=== PATIENT | female | born 1995 | race Caucasian/White ===

== ENCOUNTER 2019-06-10 13:08 | Emergency (ER) | payer OTHER ==
[2019-06-10 14:08] VITALS: BP 125/89; PULSE 98; TEMP 101.2; BMI 24.0
--- NOTE | 2019-06-10 14:09 | PDOC ---
Rapid Medical Evaluation Chief Complaint: Cold Symptoms Time Seen by Provider: 06/10/19 14:08 Medical Evaluation: Allergies Allergy/AdvReac Type Severity Reaction Status Date / Time No Known Drug Allergies Allergy Verified 06/10/19 14:09 Vital Signs Temp Pulse Resp BP Pulse Ox 101.2 F H 98 H 18 125/89 98 06/10/19 14:06 06/10/19 14:06 06/10/19 14:06 06/10/19 14:06 06/10/19 14:06 06/10/19 14:09 Pt c/o: fever, cough, myalgia Pt on brief exam: tachy, febrile Pt ordered for: influenza pt to proceed to the ED Discharge Disposition - Diagnosis Influenza - Discharge Dispostion Disposition: HOME Condition at time of disposition: Stable - Prescriptions Prescriptions: Ibuprofen 600 mg PO Q6H #30 tablet Ondansetron [Zofran Odt -] 4 mg SL TID #10 od.tablet - Referrals Referrals: Nito Mars MD [Staff Physician] - - Patient Instructions Printed Discharge Instructions: DI for Influenza -- Adult Additional Instructions: You have the flu. This is a virus that will get better on its own in approximately 7-10 days. You will most likely have a fever for 7-10 days because of the flu. This is to be expected. Drink plenty of fluids to prevent dehydration and get plenty of rest. Warm tea and cough drops may help your symptoms as well Take Motrin as directed for pain and fever. Take all other medications as prescribed. Follow up with your primary care doctor this week Return to the ED for difficulty breathing, shortness of breath, weakness, or if you have any other changes in your symptoms. - Post Discharge Activity Work/School Note: Back to Work
[2019-06-10] MEDS ORDERED: IBUPROFEN 400 MG TABLET (FP) PO ONE ×2 (14:10→15:51)
[2019-06-10] MEDS ORDERED: ACETAMINOPHEN 325 MG TABLET (FP) PO ONE (15:59)
[2019-06-10] MEDS ORDERED: ACETAMINOPHEN 500 MG TABLET (FP) ONE (16:01)
[2019-06-10] MEDS ORDERED: ONDANSETRON *ODT* 4 MG TABLET SL ONE (16:08)
--- NOTE | 2019-06-10 16:08 | PDOC ---
History of Present Illness - General Chief Complaint: Cold Symptoms Stated Complaint: COLD SYMPSTOM Time Seen by Provider: 06/10/19 14:08 History Source: Patient Exam Limitations: No Limitations Past History - Travel Traveled outside of the country in the last 30 days: No Close contact w/someone who was outside of country & ill: No - Past Medical History Allergies/Adverse Reactions: Allergies Allergy/AdvReac Type Severity Reaction Status Date / Time No Known Drug Allergies Allergy Verified 06/10/19 14:09 Home Medications: Ambulatory Orders Ondansetron [Zofran Odt -] 4 mg SL TID #10 od.tablet 06/10/19 Anemia: No Asthma: No Cancer: No Cardiac Disorders: No CVA: No COPD: No CHF: No Dementia: No Diabetes: No GI Disorders: No Disorders: No HTN: No Hypercholesterolemia: No Liver Disease: No Seizures: No Thyroid Disease: No - Reproductive History (#): 2 Para: 0 Spontaneous : 1 - Immunization History Immunization Up to Date: Yes - Psycho Social/Smoking Cessation Hx Smoking Status: No Smoking History: Never smoked Have you smoked in the past 12 months: Yes Number of Cigarettes Smoked Daily: 1 'Breaking Loose' booklet given: 10/25/15 Hx Alcohol Use: No Drug/Substance Use Hx: No Substance Use Type: None Review of Systems - Review of Systems Able to Perform ROS?: Yes Comments:: 06/10/19 16:07 CONSTITUTIONAL: Present: Fever, chills, body aches Absent: diaphoresis, generalized weakness, malaise, loss of appetite HEENT: Present: rhinorrhea, nasal congestion, throat pain. Absent: difficulty swallowing, mouth swelling, ear pain, eye pain, visual Changes CARDIOVASCULAR: Absent: chest pain, loss of consciousness, palpitations, irregular heart rate, peripheral edema RESPIRATORY: Present: Cough Absent: shortness of breath, dyspnea with exertion, orthopnea, wheezing, stridor, hemoptysis GASTROINTESTINAL: Absent: abdominal pain, abdominal distension, nausea, vomiting, diarrhea, constipation, melena, hematochezia SKIN: Absent: rash, itching, pallor NEUROLOGIC: Present: headache Absent: focal weakness or paresthesias, dizziness, unsteady gait, seizure, mental status changes, bladder or bowel incontinence Is the patient limited Yi proficient: No *Physical Exam - Vital Signs Last Vital Signs Temp Pulse Resp BP Pulse Ox 101.2 F H 98 H 18 125/89 98 06/10/19 14:06 06/10/19 14:06 06/10/19 14:06 06/10/19 14:06 06/10/19 14:06 - Physical Exam 06/10/19 16:08 GENERAL: Well developed, well nourished. Awake and alert. No acute distress. HEENT: Normocephalic, atraumatic. PERRLA, EOMI. No conjunctival pallor. Sclera are non- icteric. Moist mucous membranes. Oropharynx is clear. NECK: Supple. Full ROM. No JVD. Carotid pulses 2+ and symmetric, without bruits. No thyromegaly. No lymphadenopathy. CARDIOVASCULAR: Regular rate and rhythm. No murmurs, rubs, or gallops. Distal pulses are 2+ and symmetric. PULMONARY: No evidence of respiratory distress. Lungs clear to auscultation bilaterally. No wheezing, rales or rhonchi. ABDOMINAL: Soft. Non-tender. Non-distended. No rebound or guarding. No organomegaly. Normoactive bowel sounds. MUSCULOSKELETAL Normal range of motion at all joints. No bony deformities or tenderness. No CVA tenderness. EXTREMITIES: No cyanosis. No clubbing. No edema. No calf tenderness. SKIN: Warm and dry. Normal capillary refill. No rashes. No jaundice. NEUROLOGICAL: Alert, awake, appropriate. Cranial nerves 2-12 intact. No deficits to light touch and temperature in face, upper extremities and lower extremities. No motor deficits in the in face, upper extremities and lower extremities. Normoreflexic in the upper and lower extremities. Normal speech. Toes are down-going bilaterally. Gait is normal without ataxia. PSYCHIATRIC: Cooperative. Good eye contact. Appropriate mood and affect. ED Treatment Course - Medications Given in the ED: ED Medications Discontinued Medications Generic Name Dose Route Start Last Admin Trade Name Freq PRN Reason Stop Dose Admin Acetaminophen 1,000 mg 06/10/19 15:59 06/10/19 16:02 Tylenol - PO 06/10/19 16:00 1,000 mg ONCE ONE Administration Ibuprofen 400 mg 06/10/19 14:10 06/10/19 15:52 Motrin - PO 06/10/19 14:11 400 mg ONCE ONE Administration Medical Decision Making - Medical Decision Making 06/10/19 16:08 Patient is a 23-year-old female no past medical history who presents to the ER with 4 days of flulike symptoms. She is been taking multiple [id number] medications without relief of her symptoms. She also admits to associated nausea. Denies difficulty breathing, shortness of breath, vomiting and diarrhea. A/P: Influenza On exam lungs are clear to auscultation bilateral without wheezes rales or rhonchi. Throat and ears are unremarkable. Patient with cervical adenopathy. Patient test positive for flu B from [facility]. Patient outside the window for Tamiflu. Recommend supportive therapy and primary care follow-up Discharge home I discussed the physical exam findings, ancillary test results and final diagnoses with the patient. I answered all of the patient's questions. The patient was satisfied with the care received and felt comfortable with the discharge plan and treatment plan. The Patient agrees to follow up with the primary care physician/specialist within 24-72 hours. Return precautions were given. Discharge - Discharge Information Problems reviewed: Yes Clinical Impression/Diagnosis: Influenza Condition: Stable Disposition: HOME - Admission No - Follow up/Referral Referrals: Nito Mars MD [Staff Physician] - - Patient Discharge Instructions Patient Printed Discharge Instructions: DI for Influenza -- Adult Additional Instructions: You have the flu. This is a virus that will get better on its own in approximately 7-10 days. You will most likely have a fever for 7-10 days because of the flu. This is to be expected. Drink plenty of fluids to prevent dehydration and get plenty of rest. Warm tea and cough drops may help your symptoms as well Take Motrin as directed for pain and fever. Take all other medications as prescribed. Follow up with your primary care doctor this week Return to the ED for difficulty breathing, shortness of breath, weakness, or if you have any other changes in your symptoms. - Post Discharge Activity Work/Back to School Note: Back to Work
[2019-06-10] MEDS ORDERED: ONDANSETRON *ODT* 4 MG TABLET ONE (16:17)
== END 2019-06-10 16:35 | disposition home or self-care (01) ==
LOC: JERFT 13:08
DX: J10.1 Influenza due to other identified influenza virus with other respiratory manifestations (principal)
CPT/HCPCS: 87804; 99281-25; Q0162

== ENCOUNTER 2022-12-22 14:21 | Day surgery (SDC) | payer OTHER ==
[2022-12-22 14:27] VITALS: BMI 22.3
[2022-12-22] MEDS ORDERED: SODIUM CHLORIDE 0.9% 500 ML INFUS.BAG IV ONE (14:51)
[2022-12-22] MEDS ORDERED: ACETAMINOPHEN 1000 MG/100 ML BAG IVPB ONE (14:51)
[2022-12-22] MEDS ORDERED: ACETAMINOPHEN INJECTION 100 ML IVPB ONE (15:09)
[2022-12-22 16:40] LABS: BASO % 0.5 % (0-2.0); EOS % 1.5 % (0-4.5); HEMATOCRIT 40.3 % (32.4-45.2); HEMOGLOBIN 13.2 GM/dL (10.7-15.3); LYMPH % 19.9 % (8-40); MCH 29.6 pg (25.7-33.7); MCHC 32.8 g/dl (32.0-36.0); MEAN CELL VOLUME 90.3 fl (80-96); MEAN PLT VOLUME 9.2 fl (7.5-11.1); MONO % 5.5 % (3.8-10.2); NEUT % 72.6 % (42.8-82.8); PLATELET COUNT 377 10^3/uL (134-434); RBC 4.47 M/mm3 (3.60-5.2); RDW 13.9 % (11.6-15.6)
[2022-12-22 16:45] LABS: INR 1.07 (0.83-1.09); PROTHROMBIN TIME (PATIENT) 12.4 SEC (9.7-13.0)
[2022-12-22 16:48] LABS: ACTIVATED PTT 27.9 SECONDS (25.2-36.5)
[2022-12-22 17:13] LABS: POTASSIUM 3.8 mmol/L (3.5-5.1)
[2022-12-22 17:16] LABS: ALBUMIN 4.2 g/dl (3.4-5.0); BLOOD UREA NITROGEN 7.4 mg/dL (7-18); CALCIUM 9.3 mg/dL (8.5-10.1)
[2022-12-22 17:19] LABS: CREATININE 0.8 mg/dL (0.55-1.3)
[2022-12-22 17:21] LABS: BILIRUBIN,TOTAL 0.2 mg/dL (0.2-1); TOT PROT 8.3 g/dl (6.4-8.2)
[2022-12-22 19:27] LABS: EPI CELLS 17 /uL (0-25.1); HYALINE CASTS 0 /uL (0-3.1); URINE APPEARANCE CLEAR; URINE BACTERIA 499 /uL (0-1359); URINE BILIRUBIN NEGATIVE (NEGATIVE); URINE COLOR YELLOW; URINE GLUCOSE (UA) NEGATIVE (NEGATIVE); URINE KETONE NEGATIVE (NEGATIVE); URINE LEUK ESTERASE NEGATIVE (NEGATIVE); URINE NITRITE NEGATIVE (NEGATIVE); URINE PROTEIN NEGATIVE (NEGATIVE); URINE RBC 19 /uL (0-23.9); URINE UROBILINOGEN 0.2 mg/dL (0.2-1.0); URINE WBC 8 /uL (0-25.8)
[2022-12-22] MEDS ORDERED: morphine CARPU-JECT 4 MG/1 ML DISP.SYRIN IVPUSH ONE (21:40)
[2022-12-22] MEDS ORDERED: morphine SULFATE 4 MG/ML VIAL ONE ×2 (21:43→21:56)
[2022-12-22] MEDS ORDERED: ONDANSETRON 4 MG/2 ML VIAL ONE (21:43)
[2022-12-22 23:29] LABS: BASO % 0.5 % (0-2.0); EOS % 0.6 % (0-4.5); HEMATOCRIT 37.8 % (32.4-45.2); HEMOGLOBIN 12.2 GM/dL (10.7-15.3); LYMPH % 15.5 % (8-40); MCH 29.4 pg (25.7-33.7); MCHC 32.2 g/dl (32.0-36.0); MEAN CELL VOLUME 91.3 fl (80-96); MEAN PLT VOLUME 8.6 fl (7.5-11.1); MONO % 4.7 % (3.8-10.2); NEUT % 78.7 % (42.8-82.8); PLATELET COUNT 343 10^3/uL (134-434); RBC 4.14 M/mm3 (3.60-5.2); RDW 13.7 % (11.6-15.6); WHITE BLOOD COUNT 15.9 K/mm3 (4.0-10.0)
[2022-12-22] MEDS ORDERED: PROPOFOL 40 ML ONE (23:42)
[2022-12-22] MEDS ORDERED: MIDAZOLAM HCL 2 MG/2 ML SINGLE DOSE VIAL ONE (23:42)
[2022-12-23] MEDS ORDERED: METHYLERGONOVINE MALEATE 0.2 MG/1 ML AMP IM ONE (00:47)
[2022-12-23] MEDS ORDERED: ONDANSETRON 4 MG/2 ML VIAL IVPUSH PRN (01:00)
[2022-12-23] MEDS ORDERED: PROMETHAZINE HCL 25 MG/1 ML VIAL IVPB PRN (01:04)
[2022-12-23] MEDS ORDERED: ACETAMINOPHEN 1000 MG/100 ML BAG IVPB ONE (01:04)
[2022-12-23] MEDS ORDERED: IBUPROFEN 400 MG TABLET (FP) PO PRN (01:14)
[2022-12-23] MEDS ORDERED: LACTATED RINGERS SOLUTION 1,000 ML IV SCH ×3 (01:15→02:00)
[2022-12-23] MEDS: FENTANYL CITRATE/PF 50 MCG/ML VIAL IVPUSH PRN ×4 (01:21→02:00)
[2022-12-23 04:02] VITALS: RESP 20
[2022-12-23 12:33] VITALS: BP 131/79; PULSE 65; TEMP 98
== END 2022-12-23 12:20 | disposition home or self-care (01) ==
LOC: JER 14:21 → JASUSAT 22:41 → UNDOADMIN 22:41 → JERBED 22:41 → J8W 12-23 03:35 → JASUSAT 12-23 07:46 → J8W 12-23 07:59 → JASUSAT 12-23 12:20
PROVIDERS: ATTEND Obstetrics & Gynecology
PROC: 10D17ZZ Extraction of Products of Conception, Retained, Via Natural or Artificial Opening (ICD-10-PCS; principal; 2022-12-22 23:45)
DX: O03.4 Incomplete spontaneous abortion without complication (principal)
CPT/HCPCS: 36415; 76801-TC; 80053; 81003; 83690; 84702; 85025; 85610; 85730; 86922; 88305-TC; 94760; 99285-25

== ENCOUNTER 2023-04-17 10:40 | Emergency (ER) | payer OTHER ==
[2023-04-17 10:59] VITALS: BP 121/83; PULSE 120; RESP 18; TEMP 98.9; BMI 23.1
[2023-04-17] MEDS ORDERED: guaiFENesin/D-METHORPHAN HB 10 ML UNIT-DOSE CUPS PO ONE (11:59)
[2023-04-17] MEDS ORDERED: predniSONE 20 MG TABLET (UD) PO ONE (11:59)
[2023-04-17] MEDS ORDERED: guaiFENesin 200 MG/10 ML 10 ML UNIT-DOSE CUPS ONE (12:27)
[2023-04-17] MEDS ORDERED: predniSONE 20 MG TABLET (UD) ONE (12:27)
[2023-04-17 12:40] LABS: THROAT:GRP A STREP NOT DETECTED (NOTDETECTED)
== END 2023-04-17 13:06 | disposition home or self-care (01) ==
LOC: JERFT 10:40
DX: R05.9 Cough, unspecified (principal); R50.9 Fever, unspecified; M79.10 Myalgia, unspecified site; R53.83 Other fatigue; J02.9 Acute pharyngitis, unspecified; R09.81 Nasal congestion; J10.1 Influenza due to other identified influenza virus with other respiratory manifestations; Z20.822 Contact with and (suspected) exposure to COVID-19
CPT/HCPCS: 0241U-QW; 71046-TC-FY; 87651; 99284-25

== ENCOUNTER 2023-12-13 00:10 | Inpatient (IN) | payer OTHER ==
[2023-12-13] MEDS: ELECTROLYTE-148 SOLN 1,000 ML IV SCH (02:00)
[2023-12-13] MEDS: ACETAMINOPHEN 325 MG TABLET (FP) PO ONE (02:10)
[2023-12-13] MEDS: OXYTOCIN 30 UNITS in 0.9% NS 30 UNIT/500 ML INFUS.BAG IVPB SCH (02:15)
[2023-12-13 02:27] LABS: BASO % 0.2 % (0-2.0); EOS % 0.9 % (0-4.5); HEMATOCRIT 37.6 % (32.4-45.2); HEMOGLOBIN 12.9 GM/dL (10.7-15.3); LYMPH % 14.9 % (8-40); MCH 30.3 pg (25.7-33.7); MCHC 34.3 g/dl (32.0-36.0); MEAN CELL VOLUME 88.4 fl (80-96); MEAN PLT VOLUME 9.5 fl (7.5-11.1); MONO % 7.1 % (3.8-10.2); NEUT % 76.9 % (42.8-82.8); PLATELET COUNT 290 10^3/uL (134-434); RBC 4.26 M/mm3 (3.60-5.2); RDW 14.6 % (11.6-15.6); WHITE BLOOD COUNT 11.8 K/mm3 (4.0-10.0)
[2023-12-13 02:36] LABS: INR 0.97 (0.83-1.09); PROTHROMBIN TIME (PATIENT) 11.2 SEC (9.7-13.0)
[2023-12-13] MEDS: BUTORPHANOL TARTRATE 1 MG/ML VIAL IVPB ONE (02:38)
[2023-12-13] MEDS: PROMETHAZINE HCL 25 MG/1 ML VIAL IVPB ONE (02:38)
[2023-12-13 02:55] LABS: CALCIUM 9.4 mg/dL (8.5-10.1)
[2023-12-13 02:56] LABS: ALBUMIN 2.7 g/dl (3.4-5.0); BLOOD UREA NITROGEN 7.6 mg/dL (7-18)
[2023-12-13 02:59] LABS: CREATININE 0.8 mg/dL (0.55-1.3)
[2023-12-13 03:01] LABS: BILIRUBIN,TOTAL 0.2 mg/dL (0.2-1); TOT PROT 6.5 g/dl (6.4-8.2)
[2023-12-13 03:49] VITALS: BMI 28.5
[2023-12-13] MEDS: AMPICILLIN - 2 GM in SODIUM CHLORIDE 100 ML IVPB ONE (04:15)
[2023-12-13] MEDS ORDERED: SODIUM CHLORIDE 100 ML IVPB ONE (04:15)
[2023-12-13] MEDS ORDERED: AMPICILLIN SODIUM 2 GM VIAL ONE (04:15)
[2023-12-13] MEDS ORDERED: FENTANYL/BUPIVACAINE/NS/PF - PCEA - 50 ML DISP.SYRIN EP ONE ×2 (04:26→08:49)
[2023-12-13] MEDS ORDERED: NALOXONE HCL 0.4 MG/ML VIAL IVPUSH PRN (04:45)
[2023-12-13] MEDS ORDERED: BUPIVACAINE HCL/PF 0.25% (2.5MG/ML) 10 ML VIAL ONE (04:46)
[2023-12-13] MEDS: FENTANYL/BUPIVACAINE/NS/PF - PCEA - 50 ML DISP.SYRIN EP SCH (05:05)
[2023-12-13 05:11] LABS: METHADONE, UR NEGATIVE (NEGATIVE); OPIATES, URI NEGATIVE (NEGATIVE); PHENCYCLIDINE,URINE NEGATIVE (NEGATIVE); URINE BARBITURATES NEGATIVE (NEGATIVE); URINE BENZODIAZEPINES NEGATIVE (NEGATIVE)
[2023-12-13] MEDS ORDERED: MAGNESIUM 4GM/H20 - 4 GM/100 ML IVPB IVPB ONE (06:13)
[2023-12-13] MEDS: MAGNESIUM 4GM/H20 - 4 GM/100 ML IVPB IVPB ONE (06:23)
[2023-12-13 06:30] LABS: COCAINE, UR NEGATIVE (NEGATIVE); URINE AMPHETAMINES NEGATIVE (NEGATIVE)
[2023-12-13] MEDS ORDERED: MAGNESIUM SULFATE 20GM/500ML - 20 GM/500 ML INFUS.BAG ONE ×2 (06:59→21:55)
[2023-12-13] MEDS: MAGNESIUM SULFATE 20GM/500ML - 20 GM/500 ML INFUS.BAG IVPB SCH ×2 (07:00→16:00)
[2023-12-13] MEDS ORDERED: AMPICILLIN SODIUM 1 GM VIAL ONE ×2 (07:44→11:56)
[2023-12-13] MEDS: AMPICILLIN - 1 GM in SODIUM CHLORIDE 100 ML IVPB SCH (08:00)
[2023-12-13] MEDS ORDERED: LIDO 2%/EPI 1:200000 PRESRVFRE (20 ML SDVIAL) ONE (12:16)
[2023-12-13] MEDS ORDERED: OXYTOCIN 20 UNITS in 0.9% NS 20 UNIT/1,000 ML INFUS.BAG IV ONE (13:00)
[2023-12-13] MEDS: OXYTOCIN 20 UNITS in 0.9% NS 20 UNIT/1,000 ML INFUS.BAG IV SCH (14:06)
[2023-12-13] MEDS ORDERED: IBUPROFEN 600 MG TABLET (FP) PO PRN (15:32)
[2023-12-13] MEDS ORDERED: METHYLERGONOVINE MALEATE 0.2 MG/1 ML AMP IM PRN (15:32)
[2023-12-13] MEDS ORDERED: WITCH HAZEL 50% (TUCKS) 40 PAD/JAR PAD TP PRN (15:32)
[2023-12-13] MEDS ORDERED: BENZOCAINE 20% 57 GM BOTTLE TP PRN (15:32)
[2023-12-13] MEDS ORDERED: BISACODYL 10 MG SUPP.RECT RC PRN (15:32)
[2023-12-13] MEDS ORDERED: BENZOCAINE 28 GM HEMORRHOIDAL OINTMENT TP PRN (15:32)
[2023-12-13] MEDS ORDERED: LABETALOL HCL 200 MG TABLET (FP) ONE ×2 (16:00→20:19)
[2023-12-13] MEDS ORDERED: ACETAMINOPHEN 325 MG TABLET (FP) ONE ×2 (16:11→21:55)
[2023-12-13] MEDS: ACETAMINOPHEN 325 MG TABLET (FP) PO PRN (16:25)
[2023-12-13] MEDS: LABETALOL HCL 200 MG TABLET (FP) PO SCH (17:08)
[2023-12-13] MEDS ORDERED: oxyCODONE HCL 5 MG TABLET ONE (19:06)
[2023-12-13] MEDS: oxyCODONE HCL 5 MG TABLET PO PRN (19:09)
[2023-12-13 21:43] LABS: HIV INTERPRETATION NEGATIVE (NEGATIVE)
[2023-12-14] MEDS ORDERED: ACETAMINOPHEN 325 MG TABLET (FP) ONE (04:54)
[2023-12-14 06:52] LABS: BASO % 0.2 % (0-2.0); EOS % 0.7 % (0-4.5); HEMATOCRIT 36.4 % (32.4-45.2); LYMPH % 11.7 % (8-40); MCH 29.9 pg (25.7-33.7); MEAN CELL VOLUME 90.5 fl (80-96); MEAN PLT VOLUME 9.7 fl (7.5-11.1); MONO % 4.9 % (3.8-10.2); NEUT % 82.5 % (42.8-82.8); PLATELET COUNT 256 10^3/uL (134-434); RBC 4.03 M/mm3 (3.60-5.2); RDW 14.5 % (11.6-15.6); WHITE BLOOD COUNT 18.5 K/mm3 (4.0-10.0)
[2023-12-14] MEDS ORDERED: oxyCODONE HCL 5 MG TABLET ONE (06:58)
[2023-12-14 07:12] LABS: MAGNESIUM 5.6 mg/dL (1.8-2.4)
[2023-12-14] MEDS: IBUPROFEN 600 MG TABLET (FP) PO SCH (10:26)
[2023-12-14] MEDS: ACETAMINOPHEN 500 MG TABLET (FP) PO SCH (10:55)
[2023-12-14] MEDS ORDERED: SENNOSIDES/DOCUSATE COMBO (SENNA PLUS) TABLET (UD) PO PRN (22:00)
[2023-12-15 11:31] VITALS: BP 143/92; PULSE 82; RESP 16; TEMP 98.5
== END 2023-12-15 14:15 | disposition home or self-care (01) | DRG 560 ==
LOC: JDEL 00:10 → JLDR 01:20 → J3W 20:52 → JLDR 21:14 → J3W 12-14 09:25
PROVIDERS: ADMIT Specialist; ATTEND Specialist
PROC: 0HQ9XZZ Repair Perineum Skin, External Approach (ICD-10-PCS; principal; 2023-12-13)
PROC: 10E0XZZ Delivery of Products of Conception, External Approach (ICD-10-PCS; 2023-12-13)
DX: O66.0 Obstructed labor due to shoulder dystocia (principal); O14.94 Unspecified pre-eclampsia, complicating childbirth; O70.0 First degree perineal laceration during delivery; Z3A.39 39 weeks gestation of pregnancy; Z37.0 Single live birth
CPT/HCPCS: 36415; 59409; 80053; 80307; 83735; 85025; 85610; 85730; 86780; 86850; 86900; 86901; 87389

== ENCOUNTER 2024-01-29 18:02 | Inpatient (IN) | payer OTHER ==
[2024-01-29] MEDS ORDERED: ACETAMINOPHEN INJECTION 100 ML ONE (18:57)
[2024-01-29] MEDS ORDERED: ONDANSETRON 4 MG/2 ML VIAL ONE ×2 (18:57→20:35)
[2024-01-29] MEDS: SODIUM CHLORIDE 0.9% 500 ML INFUS.BAG IV ONE ×2 (19:18→21:15)
[2024-01-29] MEDS: ONDANSETRON 4 MG/2 ML VIAL IVPUSH ONE ×2 (19:19→20:40)
[2024-01-29] MEDS: ACETAMINOPHEN 1000 MG/100 ML BAG IVPB ONE (19:19)
[2024-01-29 19:55] LABS: BASO % 0.1 % (0-2.0); HEMATOCRIT 43.7 % (32.4-45.2); HEMOGLOBIN 14.2 GM/dL (10.7-15.3); LYMPH % 7.6 % (8-40); MCH 28.6 pg (25.7-33.7); MCHC 32.6 g/dl (32.0-36.0); MEAN CELL VOLUME 87.7 fl (80-96); MEAN PLT VOLUME 9.8 fl (7.5-11.1); MONO % 7.9 % (3.8-10.2); NEUT % 84.4 % (42.8-82.8); PLATELET COUNT 301 10^3/uL (134-434); RBC 4.98 M/mm3 (3.60-5.2); WHITE BLOOD COUNT 17.5 K/mm3 (4.0-10.0)
[2024-01-29] MEDS ORDERED: MORPHINE SULFATE 2 MG/ML SYRINGE ONE ×2 (20:27→22:19)
[2024-01-29 20:35] LABS: POTASSIUM 5.2 mmol/L (3.5-5.1)
[2024-01-29 20:38] LABS: CALCIUM 9.7 mg/dL (8.5-10.1)
[2024-01-29 20:39] LABS: ALBUMIN 3.5 g/dl (3.4-5.0)
[2024-01-29 20:42] LABS: CREATININE 1.3 mg/dL (0.55-1.3)
[2024-01-29 20:43] LABS: BILIRUBIN,TOTAL 0.9 mg/dL (0.2-1); TOT PROT 8.8 g/dl (6.4-8.2)
[2024-01-29] MEDS: morphine CARPU-JECT 2 MG/1 ML DISP.SYRIN IVPUSH ONE ×2 (20:53→22:31)
[2024-01-29] MEDS ORDERED: PIPERACILLIN/TAZOB 3.375 GM 3.375 GM/50 ML BAG IVPB ONE (21:07)
[2024-01-29 21:13] LABS: EPI CELLS >36 /uL (0-25.1); HYALINE CASTS 0 /uL (0-3.1); URINE APPEARANCE CLEAR; URINE BACTERIA 901 /uL (0-1359); URINE BILIRUBIN NEGATIVE (NEGATIVE); URINE COLOR YELLOW; URINE GLUCOSE (UA) NEGATIVE (NEGATIVE); URINE KETONE NEGATIVE (NEGATIVE); URINE LEUK ESTERASE 2+ (NEGATIVE); URINE NITRITE NEGATIVE (NEGATIVE); URINE PROTEIN 1+ (NEGATIVE); URINE RBC 17 /uL (0-23.9); URINE UROBILINOGEN 0.2 mg/dL (0.2-1.0); URINE WBC 56 /uL (0-25.8)
[2024-01-29] MEDS: PIPERACILLIN/TAZOB 3.375 GM 3.375 GM in DEXTROSE 5%-WATER - 50 ML IVPB ONE (21:15)
[2024-01-30] MEDS ORDERED: ACETAMINOPHEN INJECTION 100 ML ONE ×4 (01:44→23:52)
[2024-01-30] MEDS: ACETAMINOPHEN 1000 MG/100 ML BAG IVPB ONE ×2 (01:47→08:04)
[2024-01-30] MEDS ORDERED: CEFTRIAXONE 1 GM/50 ML BAG ONE (01:49)
[2024-01-30] MEDS: CEFTRIAXONE 1,000 MG in DEXTROSE 5%-WATER - 50 ML IVPB ONE (01:51)
[2024-01-30] MEDS: LACTATED RINGERS SOLUTION 1,000 ML/1,000 ML INFUS.BAG IV SCH ×2 (03:12→08:04)
[2024-01-30] MEDS: morphine SULFATE 4 MG/ML VIAL IVPUSH ONE (05:05)
[2024-01-30] MEDS ORDERED: ENOXAPARIN NA (PORCINE) 40 MG/0.4 ML DISP.SYRIN SQ ONE (10:14)
[2024-01-30] MEDS ORDERED: PIPERACILLIN/TAZOB 4.5 GM 4.5 GM/100 ML BAG IVPB ONE (10:14)
[2024-01-30] MEDS: PIPERACILLIN/TAZOB 4.5 GM 4.5 GM in DEXTROSE 5%-WATER 100 ML IVPB SCH ×2 (10:29→11:32)
[2024-01-30] MEDS: ENOXAPARIN NA (PORCINE) 40 MG/0.4 ML DISP.SYRIN SQ SCH (10:29)
[2024-01-30] MEDS: ACETAMINOPHEN 1000 MG/100 ML BAG IVPB PRN (16:23)
[2024-01-30] MEDS ORDERED: MEROPENEM 1 GM VIAL (RESTRICTED TO ID) IVPB ONE (17:24)
[2024-01-30] MEDS ORDERED: MEROPENEM 1 GM in DEXTROSE 5%-WATER 100 ML IVPB SCH (18:00)
[2024-01-30] MEDS ORDERED: PIPERACILLIN/TAZOB 4.5 GM 4.5 GM in DEXTROSE 5%-WATER 100 ML IVPB SCH (18:00)
[2024-01-30] MEDS: MEROPENEM 1 GM in DEXTROSE 5%-WATER 100 ML IVPB SCH (18:30)
[2024-01-30 19:54] VITALS: RESP 18
[2024-01-31] MEDS: ONDANSETRON 4 MG/2 ML VIAL IVPUSH ONE (01:55)
[2024-01-31] MEDS: ONDANSETRON *ODT* 4 MG TABLET SL PRN (02:10)
[2024-01-31 04:02] VITALS: BMI 25.3
[2024-01-31] MEDS: KETOROLAC TROMETHAMINE 15 MG/ML VIAL IM PRN (04:43)
[2024-01-31 10:26] LABS: HEMATOCRIT 33.5 % (32.4-45.2); HEMOGLOBIN 11.1 GM/dL (10.7-15.3); MCH 28.9 pg (25.7-33.7); MCHC 33.2 g/dl (32.0-36.0); MEAN CELL VOLUME 87.1 fl (80-96); MEAN PLT VOLUME 9.6 fl (7.5-11.1); PLATELET COUNT 282 10^3/uL (134-434); RBC 3.85 M/mm3 (3.60-5.2); RDW 13.7 % (11.6-15.6); WHITE BLOOD COUNT 11.4 K/mm3 (4.0-10.0)
[2024-01-31 12:10] LABS: POTASSIUM 3.9 mmol/L (3.5-5.1)
[2024-01-31 12:20] LABS: CREATININE 0.8 mg/dL (0.55-1.3); PHOSPHOROUS 3.4 mg/dL (2.5-4.9)
[2024-01-31 12:21] LABS: BILIRUBIN,TOTAL 0.4 mg/dL (0.2-1); BLOOD UREA NITROGEN 9.2 mg/dL (7-18); MAGNESIUM 2.1 mg/dL (1.8-2.4)
[2024-01-31 12:24] LABS: ALBUMIN 2.5 g/dl (3.4-5.0); TOT PROT 6.2 g/dl (6.4-8.2)
[2024-01-31 15:44] VITALS: BP 120/90; PULSE 72; TEMP 97.9
== END 2024-01-31 17:18 | disposition home or self-care (01) | DRG 561 ==
LOC: JER 18:02 → JERBED 22:46 → OBSVTOIN 01-30 08:48 → J6S 01-31 01:02
PROVIDERS: ADMIT Student in an Organized Health Care Education/Training Program; ATTEND Internal Medicine
PROC: 05HY33Z Insertion of Infusion Device into Upper Vein, Percutaneous Approach (ICD-10-PCS; principal; 2024-01-31)
DX: O86.21 Infection of kidney following delivery (principal); R74.01 Elevation of levels of liver transaminase levels; A41.9 Sepsis, unspecified organism; E86.0 Dehydration; E86.1 Hypovolemia; N12 Tubulo-interstitial nephritis, not specified as acute or chronic
CPT/HCPCS: 0241U-QW; 36415; 36569; 74177-TC; 80053; 81003; 83605; 83690; 83735; 84100; 84703; 85025; 85027; 87040; 87086; 93005; 93010; 99285-25; G0378; J0131; Q0162; Q9967

== ENCOUNTER 2024-02-01 12:05 | Day surgery (SDC) | payer OTHER ==
[2024-02-01] MEDS: ERTAPENEM SODIUM 1 GM in SODIUM CHLORIDE 50 ML IVPB ONE (12:30)
[2024-02-01 13:10] VITALS: BP 129/88; PULSE 80; RESP 19; TEMP 98.4
== END 2024-02-01 13:05 | disposition home or self-care (01) ==
LOC: FINFUSION 12:05 → FM/S 12:09 → FINFUSION 13:05
PROVIDERS: ATTEND Internal Medicine Infectious Disease
DX: N39.0 Urinary tract infection, site not specified (principal)
CPT/HCPCS: 96365

== ENCOUNTER 2024-02-02 12:25 | Day surgery (SDC) | payer OTHER ==
[2024-02-02] MEDS: ERTAPENEM SODIUM 1 GM in SODIUM CHLORIDE 50 ML IVPB SCH (13:06)
[2024-02-02 13:16] VITALS: TEMP 98.4
[2024-02-02 13:54] VITALS: BP 112/55; PULSE 85; RESP 18
== END 2024-02-02 13:50 | disposition home or self-care (01) ==
LOC: FINFUSION 12:25 → FM/S 12:30 → FINFUSION 13:50
PROVIDERS: ATTEND Internal Medicine Infectious Disease
DX: N39.0 Urinary tract infection, site not specified (principal)
CPT/HCPCS: 96365

== ENCOUNTER 2024-02-03 12:12 | Day surgery (SDC) | payer OTHER ==
[2024-02-03] MEDS: ERTAPENEM SODIUM 1 GM in SODIUM CHLORIDE 50 ML IVPB SCH (12:33)
[2024-02-03 13:22] VITALS: BP 132/96; PULSE 72; RESP 14; TEMP 98.8
== END 2024-02-03 13:25 | disposition home or self-care (01) ==
LOC: FINFUSION 12:12 → FM/S 12:13 → FINFUSION 13:25
PROVIDERS: ATTEND Internal Medicine Infectious Disease
DX: N39.0 Urinary tract infection, site not specified (principal)
CPT/HCPCS: 96365

== ENCOUNTER 2024-02-04 12:15 | Day surgery (SDC) | payer OTHER ==
[2024-02-04] MEDS: ERTAPENEM SODIUM 1 GM in SODIUM CHLORIDE 50 ML IVPB ONE (12:40)
[2024-02-04 13:17] VITALS: BP 129/92; PULSE 86; RESP 18; TEMP 98.6
== END 2024-02-04 13:13 | disposition home or self-care (01) ==
LOC: FINFUSION 12:15 → FM/S 12:18 → FINFUSION 13:13
PROVIDERS: ATTEND Internal Medicine Infectious Disease
DX: N39.0 Urinary tract infection, site not specified (principal)
CPT/HCPCS: 96365

== ENCOUNTER 2024-02-05 14:32 | Day surgery (SDC) | payer OTHER ==
[2024-02-05] MEDS: ERTAPENEM SODIUM 1 GM in SODIUM CHLORIDE 50 ML IVPB ONE (15:23)
[2024-02-05 16:14] VITALS: BP 117/68; PULSE 91; RESP 16; TEMP 98.1
== END 2024-02-05 16:10 | disposition home or self-care (01) ==
LOC: FINFUSION 14:32 → FM/S 14:32 → FINFUSION 16:10
PROVIDERS: ATTEND Internal Medicine Infectious Disease
DX: N39.0 Urinary tract infection, site not specified (principal)
CPT/HCPCS: 96365

== ENCOUNTER 2024-02-06 12:04 | Day surgery (SDC) | payer OTHER ==
[2024-02-06] MEDS: ERTAPENEM SODIUM 1 GM in SODIUM CHLORIDE 50 ML IVPB ONE (12:35)
[2024-02-06 13:36] VITALS: BP 117/71; PULSE 68; RESP 16; TEMP 98.1
== END 2024-02-06 13:39 | disposition home or self-care (01) ==
LOC: FINFUSION 12:04 → FM/S 12:05 → FINFUSION 13:39
PROVIDERS: ATTEND Internal Medicine Infectious Disease
DX: N39.0 Urinary tract infection, site not specified (principal)
CPT/HCPCS: 96365

== ENCOUNTER 2024-02-07 12:56 | Day surgery (SDC) | payer OTHER ==
[2024-02-07] MEDS: ERTAPENEM SODIUM 1 GM in SODIUM CHLORIDE 50 ML IVPB ONE (13:22)
[2024-02-07 14:18] VITALS: BP 118/75; PULSE 68; RESP 16; TEMP 98.4
== END 2024-02-07 14:18 | disposition home or self-care (01) ==
LOC: FINFUSION 12:56 → FM/S 12:59 → FINFUSION 14:18
PROVIDERS: ATTEND Internal Medicine Infectious Disease
DX: N39.0 Urinary tract infection, site not specified (principal)
CPT/HCPCS: 96365

== ENCOUNTER 2024-02-08 13:01 | Day surgery (SDC) | payer OTHER ==
[2024-02-08] MEDS: ERTAPENEM SODIUM 1 GM in SODIUM CHLORIDE 50 ML IVPB ONE (13:15)
[2024-02-08 15:16] VITALS: BP 110/68; PULSE 79; RESP 16; TEMP 98.8
== END 2024-02-08 14:00 | disposition home or self-care (01) ==
LOC: FINFUSION 13:01 → FM/S 13:01 → FINFUSION 14:00
PROVIDERS: ATTEND Internal Medicine Infectious Disease
DX: N39.0 Urinary tract infection, site not specified (principal)
CPT/HCPCS: 96365

== ENCOUNTER 2024-02-09 13:01 | Day surgery (SDC) | payer OTHER ==
[2024-02-09] MEDS: ERTAPENEM SODIUM 1 GM in SODIUM CHLORIDE 50 ML IVPB ONE (13:32)
[2024-02-09 14:25] VITALS: BP 106/72; PULSE 75; RESP 14; TEMP 98.4
== END 2024-02-09 14:26 | disposition home or self-care (01) ==
LOC: FINFUSION 13:01 → FM/S 13:02 → FINFUSION 14:26
PROVIDERS: ATTEND Internal Medicine Infectious Disease
DX: N39.0 Urinary tract infection, site not specified (principal)
CPT/HCPCS: 96365

== ENCOUNTER 2024-02-10 12:50 | Day surgery (SDC) | payer OTHER ==
[2024-02-10] MEDS: ERTAPENEM SODIUM 1 GM in SODIUM CHLORIDE 50 ML IVPB ONE (13:34)
[2024-02-10 14:36] VITALS: BP 112/70; PULSE 71; RESP 16; TEMP 99
== END 2024-02-10 14:40 | disposition home or self-care (01) ==
LOC: FINFUSION 12:50 → FM/S 12:51 → FINFUSION 14:40
PROVIDERS: ATTEND Internal Medicine Infectious Disease
DX: N39.0 Urinary tract infection, site not specified (principal)
CPT/HCPCS: 96365

== ENCOUNTER 2024-02-22 14:56 | Emergency (ER) | payer OTHER ==
[2024-02-22 15:05] VITALS: RESP 20; BMI 27.1
[2024-02-22] MEDS ORDERED: ACETAMINOPHEN INJECTION 100 ML ONE (16:18)
[2024-02-22] MEDS: ACETAMINOPHEN 1000 MG/100 ML BAG IVPB ONE (16:39)
[2024-02-22 17:44] LABS: POTASSIUM 4.6 mmol/L (3.5-5.1)
[2024-02-22 17:47] LABS: CALCIUM 9.8 mg/dL (8.5-10.1)
[2024-02-22 17:48] LABS: ALBUMIN 3.9 g/dl (3.4-5.0); BLOOD UREA NITROGEN 11.5 mg/dL (7-18)
[2024-02-22 17:51] LABS: CREATININE 1.1 mg/dL (0.55-1.3)
[2024-02-22 17:52] LABS: BILIRUBIN,TOTAL 0.4 mg/dL (0.2-1); TOT PROT 7.9 g/dl (6.4-8.2)
[2024-02-22 17:55] LABS: URINE APPEARANCE CLEAR; URINE BILIRUBIN NEGATIVE (NEGATIVE); URINE COLOR YELLOW; URINE GLUCOSE (UA) NEGATIVE (NEGATIVE); URINE KETONE NEGATIVE (NEGATIVE); URINE LEUK ESTERASE NEGATIVE (NEGATIVE); URINE NITRITE NEGATIVE (NEGATIVE); URINE PROTEIN NEGATIVE (NEGATIVE); URINE UROBILINOGEN 0.2 mg/dL (0.2-1.0)
[2024-02-22 18:02] LABS: HIV INTERPRETATION NEGATIVE (NEGATIVE)
[2024-02-22 19:11] VITALS: BP 114/69; PULSE 77; TEMP 98.3
[2024-02-22 19:37] LABS: BASO % 0.5 % (0-2.0); EOS % 3.1 % (0-4.5); HEMATOCRIT 36.4 % (32.4-45.2); HEMOGLOBIN 11.8 GM/dL (10.7-15.3); LYMPH % 27.7 % (8-40); MCH 28.6 pg (25.7-33.7); MCHC 32.5 g/dl (32.0-36.0); MEAN CELL VOLUME 88.2 fl (80-96); MEAN PLT VOLUME 8.9 fl (7.5-11.1); MONO % 7.2 % (3.8-10.2); NEUT % 61.5 % (42.8-82.8); PLATELET COUNT 344 10^3/uL (134-434); RBC 4.13 M/mm3 (3.60-5.2); RDW 13.6 % (11.6-15.6); WHITE BLOOD COUNT 8.5 K/mm3 (4.0-10.0)
== END 2024-02-22 20:04 | disposition home or self-care (01) ==
LOC: JER 14:56
PROC: 3E033NZ Introduction of Analgesics, Hypnotics, Sedatives into Peripheral Vein, Percutaneous Approach (ICD-10-PCS; principal; 2024-02-22)
DX: S06.0X0A Concussion without loss of consciousness, initial encounter (principal); R11.10 Vomiting, unspecified; W01.198A Fall on same level from slipping, tripping and stumbling with subsequent striking against other object, initial encounter
CPT/HCPCS: 36415; 70450-TC; 70486-TC; 80053; 81003; 84703; 85025; 86803; 87077; 87086; 87389; 93005; 93010; 99285-25; J0131